=== PATIENT | female | born 1950 | race Caucasian/White ===

== ENCOUNTER 2017-07-23 12:29 | Outpatient (CLI) | payer MEDICARE, BC ==
[2017-07-23 13:43] LABS: Hemoglobin 14.8 g/dL (12.0-16.0); Mean Corpuscular HGB CONC 32.7 g/dL (32.0-36.0); Mean Corpuscular Hemoglobin 31.9 pg (27.0-31.0); Mean Corpuscular Volume 97.5 fl (81.0-99.0); Mean Platelet Volume 7.8 fL (7.4-10.4); Platelet Count 183 thou/uL (130-400); RBC Distribution Width 11.7 % (11.5-14.5); Red Blood Cell (RBC) Count 4.65 mill/uL (4.20-5.40); White Blood Cell (WBC) Count 6.5 thou/uL (4.8-10.8)
--- NOTE | 2017-07-23 14:08 | RAD ---
PA AND LATERAL VIEWS CHEST: Date: 07/23/17 HISTORY: Preoperative evaluation. FINDINGS: The heart size is normal. The lungs are expanded without focal areas of consolidation, pneumothorax, or pleural effusions. No acute osseous abnormalities are seen. IMPRESSION: No radiographic evidence of acute cardiopulmonary process. POS: [facility]
[2017-07-23 14:09] LABS: Anion Gap 11 mmol/L (10-20); BUN (Urea Nitrogen) 20 mg/dL (9.8-20.1); Calc. Creatinine Clearance 0 mL/min (70-130); Carbon Dioxide 27 mmol/L (23-31); Chloride 106 mmol/L (98-107); Estimated GFR-MDRD 64; Glucose 100 mg/dL (80-115); Potassium 4.3 mmol/L (3.5-5.1); Sodium 140 mmol/L (136-145)
== END 2017-07-23 12:30 | disposition home or self-care (01) ==
LOC: LABBT 12:29
PROVIDERS: ATTEND Obstetrics & Gynecology
DX: Z01.818 Encounter for other preprocedural examination (principal); N81.6 Rectocele
CPT/HCPCS: 71046; 80048; 85027; 86850; 86900; 86901; 93005; 93010

== ENCOUNTER 2017-07-26 06:10 | Inpatient (IN) | payer MEDICARE, BC ==
[2017-07-23 12:48] VITALS: BMI 25.0
[2017-07-26] MEDS ORDERED: CEFAZOLIN/Water 2 GM/20 ML SYRINGE ONE (06:39)
[2017-07-26] MEDS ORDERED: CeleCOXIB 100 MG CAP ONE (06:39)
[2017-07-26] MEDS ORDERED: Acetaminophen 500 MG TAB ONE (06:39)
[2017-07-26] MEDS ORDERED: Gabapentin 300 MG CAP ONE (06:39)
[2017-07-26] MEDS ORDERED: Famotidine/PF 20 mg/2ml Vial ONE ×2 (06:40→06:41)
[2017-07-26] MEDS ORDERED: Midazolam HCl 2 mg/2 ml Vial ONE (07:05)
[2017-07-26] MEDS ORDERED: Fentanyl 100 MCG/2 ML VIAL ONE (07:05)
[2017-07-26] MEDS ORDERED: Lidocaine 0.5%/Epinephrine 1:200,000 50 ml Vial ONE (07:10)
[2017-07-26] MEDS ORDERED: HYDROmorphone 0.5 MG/0.5 ML SYRINGE ONE (07:29)
[2017-07-26] MEDS ORDERED: traMADol HCl 50 MG TAB PO PRN (08:59)
[2017-07-26] MEDS ORDERED: Acetaminophen 325 MG TAB PO PRN (08:59)
[2017-07-26] MEDS ORDERED: Ondansetron HCl/PF 4 MG/2 ML Vial IVP PRN ×2 (08:59→10:13)
[2017-07-26] MEDS ORDERED: Meperidine HCl/PF 25 MG/ML VIAL SLOW IVP PRN (10:13)
[2017-07-26] MEDS ORDERED: Promethazine HCl 25 MG/ML VIAL SLOW IVP PRN (10:13)
[2017-07-26] MEDS ORDERED: Promethazine HCl 25 MG/ML VIAL IM PRN (10:13)
[2017-07-26] MEDS: Ketorolac Tromethamine 30 MG/ML VIAL IVP SCH ×3 (10:16→21:39)
[2017-07-26] MEDS: Sodium Chloride 0.45% 1,000 ML IV SCH ×3 (10:21→16:57)
[2017-07-26] MEDS ORDERED: Dexamethasone 20 MG/5 ML VIAL ONE (12:15)
[2017-07-26] MEDS ORDERED: ePHEDrine/0.9% NaCl/PF SYRINGE 50 mg/10 ml ONE (12:15)
[2017-07-26] MEDS ORDERED: PROPOFOL 200 MG/20 ML VIAL ONE (12:15)
[2017-07-26] MEDS ORDERED: Ondansetron HCl/PF 4 MG/2 ML Vial ONE (12:15)
[2017-07-26] MEDS ORDERED: Ketorolac Tromethamine 30 MG/ML VIAL ONE (12:15)
[2017-07-26] MEDS ORDERED: Glycopyrrolate 0.2 MG/ML 5 ML SYRINGE ONE (12:15)
[2017-07-26] MEDS ORDERED: Lidocaine 1% PF 5 ML VIAL ONE (12:15)
--- NOTE | 2017-07-26 14:06 | OP ---
DATE OF PROCEDURE: 07/26/2017 PREOPERATIVE DIAGNOSES: Symptomatic rectocele, still has the uterus, tubes and ovaries. POSTOPERATIVE DIAGNOSES: Symptomatic rectocele, still has the uterus, tubes and ovaries. No evidenc e of enterocele. SURGEON: Sanchez Al M.D. CHEMICAL PROJECT ENGINEER: Dr. Klarissa Grey M.D. ANESTHESIA: General endotracheal by [employer] INST[employer]ER, see their notes for details. OPERATIVE FINDINGS: Included a grade III-IV rectocele with good perineal support, minimal uterine pr olapse and a grade 2 cystocele. OPERATIVE COMPLICATIONS: None. BLOOD LOSS: Less than 50 mL. DRAINS: Moreno was the only drain. There was a wet Kerlix as a Vag pack. PROCEDURE IN DETAIL: The patient was taken to the operating room where she was examined under anesth esia and prepped and draped in the usual fashion. The Moreno catheter was inserted and then the poste rior vaginal wall of the vagina was injected with 24 mL of 0.5% Xylocaine with epinephrine for hemost asis and postoperative pain relief. This was injected in the midline and a midline incision was made with the Triplett scissor then carried c ephalad with the Metzenbaum scissors, each time tagging the edges with Allis clamps or Malone clamps u p to the apex of the vagina just below the cervix. The fascia was dissected off the mucosa with blunt and sharp dissection on both sides revealing fairl y good fascial support. The fascial support was closed with interrupted mattress sutures of [address] the way down to the introitus, a running locked 0 Vicryl suture was started at the apex o f the vagina. The extraneous mucosa was trimmed near the introitus and the mucosa was tacked to the posterior fascial floor that had been created with interrupted sutures that had put the fascia back t ogether. Some interrupted 0 Vicryl and 2-0 Vicryl sutures were placed along the running stitch for further sup port and hemostasis. There was minimal bleeding. A vaginal Kerlix was placed in the vagina after th e rectal exam was performed to make sure there was no evidence of rectal injury or sutures and there was none. The patient was taken to the recovery room having tolerated the procedure and anesthesia w ell. She did receive 2 grams of Ancef preoperatively and 30 mg of Toradol at the end of the case.
[2017-07-26] MEDS: Metoprolol Tartrate 50 MG TAB PO SCH (19:52)
[2017-07-26] MEDS ORDERED: Atorvastatin Calcium 10 MG TAB PO SCH (21:00)
[2017-07-27] MEDS: Ketorolac Tromethamine 30 MG/ML VIAL IVP SCH ×2 (04:30→09:29)
[2017-07-27 05:23] LABS: Hemoglobin 13.4 g/dL (12.0-16.0); Mean Corpuscular HGB CONC 34.4 g/dL (32.0-36.0); Mean Corpuscular Hemoglobin 33.1 pg (27.0-31.0); Mean Corpuscular Volume 96.1 fl (81.0-99.0); Mean Platelet Volume 7.8 fL (7.4-10.4); Platelet Count 147 thou/uL (130-400); RBC Distribution Width 11.7 % (11.5-14.5); Red Blood Cell (RBC) Count 4.05 mill/uL (4.20-5.40); White Blood Cell (WBC) Count 13.5 thou/uL (4.8-10.8)
[2017-07-27] MEDS: Sodium Chloride 0.45% 1,000 ML IV SCH ×2 (06:20→11:40)
[2017-07-27] MEDS: Metoprolol Tartrate 50 MG TAB PO SCH (09:27)
[2017-07-27 11:20] VITALS: BP 114/59; TEMP 98.9
== END 2017-07-27 13:56 | disposition home or self-care (01) | DRG 748 ==
LOC: SDC 06:10 → 3SE 09:00
PROVIDERS: ADMIT Obstetrics & Gynecology; ATTEND Obstetrics & Gynecology
PROC: 0JQC0ZZ Repair Pelvic Region Subcutaneous Tissue and Fascia, Open Approach (ICD-10-PCS; principal; 2017-07-26)
DX: N81.6 Rectocele (principal); N81.10 Cystocele, unspecified; N95.2 Postmenopausal atrophic vaginitis; N94.12 Deep dyspareunia; N39.46 Mixed incontinence; I10 Essential (primary) hypertension; J45.909 Unspecified asthma, uncomplicated; E78.5 Hyperlipidemia, unspecified; K21.0 Gastro-esophageal reflux disease with esophagitis; Z86.001 Personal history of in-situ neoplasm of cervix uteri; Z87.891 Personal history of nicotine dependence; Z01.818 Encounter for other preprocedural examination
CPT/HCPCS: 36415; 71046; 80048; 85027; 86850; 86900; 86901; 93005; 93010; J1100; J1170; J1885; J2001; J2250; J2405; J2704; J3010; S0028

== ENCOUNTER 2021-08-15 13:07 | Outpatient (CLI) | payer MEDICARE, BC | END 2021-08-15 13:08 | disposition home or self-care (01) | LOC: BICMAMMO 13:07 | PROVIDERS: ATTEND Internal Medicine | DX: Z12.31 Encounter for screening mammogram for malignant neoplasm of breast (principal); Z91.89 Other specified personal risk factors, not elsewhere classified | CPT/HCPCS: 77063; 77067 ==